=== PATIENT | female | born 1975 | race Caucasian/White ===

== ENCOUNTER 2018-06-26 08:00 | Outpatient (CLI) | payer BC ==
[2018-07-18 07:11] VITALS: BMI 34.4
== END 2018-06-26 09:00 | disposition home or self-care (01) ==
LOC: D.MAMMO 08:00
DX: Z12.31 Encounter for screening mammogram for malignant neoplasm of breast (principal)

== ENCOUNTER → 2018-06-26 16:54 | Outpatient (CLI) | payer BC ==
[~2018-06-26 16:54] MED LIST: FLUTICASONE PRO16 GM; LISINOPRIL10 MG PO; OMEPRAZOLE CAP 20M; [UNRECOGNIZED DRUG - OTHER]
[2018-07-18 07:11] VITALS: BMI 34.4
== END | disposition home or self-care (01) ==
LOC: D.LABREF 16:54
DX: R31.9 Hematuria, unspecified (principal)

== ENCOUNTER → 2018-07-04 08:37 | Outpatient (CLI) | payer BC ==
[2018-07-18 07:11] VITALS: BMI 34.4
== END | disposition home or self-care (01) ==
LOC: D.CT 08:30
DX: R31.21 Asymptomatic microscopic hematuria (principal)

== ENCOUNTER 2018-07-18 06:00 | Day surgery (SDC) | payer BC ==
[~2018-07-18] VITALS: Ht 162.6 cm; Wt 90.7 kg
--- NOTE | ~2018-07-18 | OP ---
PATIENT NAME: DONA TIJERINA MEDICAL RECORD: [id number] :77 LOCATION:[facility] ADMISSION DATE: SURGEON: GEETA BARNES MD DATE OF OPERATION: 07/18/2018 SURGEON: Geeta Barnes MD APPLIANCE PAINTER AND REFINISHER: JADA by Erich Pat CRNA. DIAGNOSES: Microscopic hematuria, interstitial cystitis, female stress urinary incontinence, cystocele Landis-Walker grade II. PROCEDURES: Examination under anesthesia, cystoscopy, intravesical Rimso instillation. FINDINGS: On EUA, she has a cystocele Landis-Walker grade II. She has single ureteral orifices bilaterally on cystoscopy. There are patches of bladder inflammation seen in the bladder. No bladder tumors were seen. BLOOD LOSS: None. CLINICAL HISTORY: This is a 43-year-old female, who is a smoker, half pack per day for 31 years. She has microscopic hematuria and symptoms of recurrent urinary tract infections. She has also symptoms of dysuria, suprapubic pain with radiation to the flanks, urinary frequency every 1-1/2 to 2 hours and urgency without incontinence. She also leaks urine with coughing, sneezing, and lifting patients. She works as a nurse. For the hematuria, she would require cystoscopy. She has already had a CT scan of the abdomen and pelvis, which was normal. Urine cytology and culture showed no growth. Cytology was normal. She comes today to have a cystoscopy performed and if we see bladder inflammation, we will give intravesical Rimso. SHE IS ALLERGIC TO BENADRYL, OXYBUTYNIN, TAPE, VARICELLA VIRUS VACCINE. She was given Ancef operations business partner to the OR. DESCRIPTION OF PROCEDURE: The patient was given IV sedation. She was placed into dorsal lithotomy position and prepped and draped. I could see on examination that she has a cystocele, which comes quite a bit down when suprapubic pressure is applied. A 17-Sierra Leonean cystoscope was placed into the urethra. She actually reacted when the scope was passed. Going into the bladder, the findings are as outlined above. No tumors were seen. The bladder was then emptied through the cystoscope sheath. Through a red rubber catheter, we inserted 50 mL of Rimso-50 solution into the bladder. The patient will hold the solution in for 15 minutes and then void it out. She will be seen in the office next week to have treatment #2 given to her. TRANSINT:[id number] Voice Confirmation ID: [id number] DOCUMENT ID: [id number] GEETA BARNES MD at 0941 CC: [id number] DICTATION DATE: 07/18/18919 INTERIOR DECORATOR: 07/18/18932 [id number] [place] [id number]
[2018-07-18 06:17] LABS: HEMATOCRIT 42.6 % (36.0-48.0); HEMOGLOBIN 14.7 g/dL (12-16); MCH 32.5 pg (26.0-34.0); MCHC 34.5 g/dL (31.0-37.0); MEAN PLATELET VOLUME 11.4 fL (7.4-10.4); RBC 4.53 10x6/uL (4.00-5.40); RDW 12.9 % (11.5-14.5); WBC 11.9 10x3/uL (4.8-10.8)
[2018-07-18] MEDS ORDERED: OMEPRAZOLE CAP 20M (06:56)
[2018-07-18] MEDS ORDERED: FLUTICASONE PRO16 GM (06:57)
[2018-07-18] MEDS ORDERED: [UNRECOGNIZED DRUG - OTHER] (06:57)
[2018-07-18] MEDS ORDERED: LISINOPRIL10 MG PO (06:57)
[2018-07-18 07:11] VITALS: BP 107/67; Ht 162.6 cm; Wt 90.7 kg
== END 2018-07-18 09:50 | disposition home or self-care (01) ==
LOC: D.OPS 06:00 → D.PAN 08:10 → D.OPS 08:15
PROVIDERS: Anesthesiology
DX: N30.11 Interstitial cystitis (chronic) with hematuria (principal); R31.29 Other microscopic hematuria; N39.3 Stress incontinence (female) (male); N81.10 Cystocele, unspecified; Z87.440 Personal history of urinary (tract) infections; Z01.812 Encounter for preprocedural laboratory examination; F17.210 Nicotine dependence, cigarettes, uncomplicated

== ENCOUNTER → 2018-07-23 12:04 | Outpatient (CLI) | payer BC ==
[2018-07-18 07:11] VITALS: BMI 34.4
[~2018-07-23 12:04] MED LIST changes: +CLARITIN 10 MG10 MG PO; +ZOFRAN8 MG PO
== END | disposition home or self-care (01) ==
LOC: D.LABREF 12:04
DX: D72.829 Elevated white blood cell count, unspecified (principal); R31.9 Hematuria, unspecified

== ENCOUNTER 2018-07-25 18:30 | Emergency (ER) | payer BC ==
[~2018-07-25] VITALS: Ht 162.6 cm; Wt 90.9 kg
[~2018-07-25 18:30] MED LIST changes: -CLARITIN 10 MG10 MG PO; -ZOFRAN8 MG PO
[2018-07-25 18:34] VITALS: Ht 162.6 cm; Wt 90.9 kg
[2018-07-25] MEDS ORDERED: CLARITIN 10 MG10 MG PO (18:37)
[2018-07-25 19:30] LABS: APPEARANCE CLEAR (CLEAR); BILIRUBIN NEGATIVE (NEGATIVE); COLOR YELLOW (YELLOW); GLUCOSE NEGATIVE (NEGATIVE); KETONE NEGATIVE (NEGATIVE); NITRITE NEGATIVE (NEGATIVE); PROTEIN NEGATIVE (NEGATIVE); RED CELLS - URINE 0-5 /hpf (0-5); UROBILINOGEN NORMAL (NORMAL); WHITE CELLS - URINE NSEEN /hpf (0-5)
[2018-07-25 19:31] LABS: BASOPHILS 0.4 % (0-2); EOSINOPHILS 7.3 % (0-7); HEMATOCRIT 42.2 % (36.0-48.0); HEMOGLOBIN 14.6 g/dL (12-16); IMMATURE GRANULOCYTES 0.2 % (0-5); LYMPHOCYTES 20.1 % (15-50); MCH 32.4 pg (26.0-34.0); MCHC 34.6 g/dL (31.0-37.0); MCV 93.8 fL (80.0-100.0); MEAN PLATELET VOLUME 11.6 fL (7.4-10.4); MONOCYTES 6.3 % (2-11); NEUTROPHILS 65.7 % (40-80); PLATELET COUNT 225 10x3/uL (130-400); WBC 8.3 10x3/uL (4.8-10.8)
[2018-07-25 19:50] LABS: ALBUMIN 3.8 g/dL (3.4-5.0); ALKALINE PHOSPHATASE 65 U/L (46-116); ALT (SGPT) 25 U/L (10-68); AMYLASE - SERUM 60 U/L (25-115); BILIRUBIN - TOTAL 0.28 mg/dL (0.2-1.3); CALC OSMOLALITY 276 mosm/kg (275-300); CALCIUM 9.3 mg/dL (8.5-10.1); CARBON DIOXIDE 28.2 mmol/L (21.0-32.0); CHLORIDE - SERUM 102 mmol/L (98-107); CREATININE - SERUM 0.6 mg/dL (0.6-1.3); GLUCOSE 95 mg/dL (74-106); LIPASE 158 U/L (73-393); POTASSIUM - SERUM 4.6 mmol/L (3.5-5.1); PROTEIN - SERUM 7.8 g/dL (6.4-8.2); SODIUM 138 mmol/L (136-145); UREA NITROGEN 16 mg/dL (7-18); eGFR NON AFRICAN AMERICAN > 90 mL/min (90-120)
[2018-07-25 20:28] LABS: HCG URINE NEGATIVE (NEGATIVE)
[2018-07-25] MEDS ORDERED: ZOFRAN8 MG PO (22:22)
[2018-07-25 23:11] VITALS: BP 132/78
== END 2018-07-25 23:12 | disposition home or self-care (01) ==
LOC: D.ER 18:30
PROVIDERS: Family Medicine
DX: R10.31 Right lower quadrant pain (principal); Z87.448 Personal history of other diseases of urinary system; R30.0 Dysuria; R35.0 Frequency of micturition; R11.0 Nausea; I10 Essential (primary) hypertension; K21.9 Gastro-esophageal reflux disease without esophagitis; F17.200 Nicotine dependence, unspecified, uncomplicated

== ENCOUNTER → 2018-08-18 17:28 | Outpatient (CLI) | payer BC ==
[2018-07-25 18:34] VITALS: BMI 34.4
[~2018-08-18 17:28] MED LIST changes: +CLARITIN 10 MG10 MG PO; +ZOFRAN8 MG PO
[2018-08-18 17:38] LABS: APPEARANCE CLEAR (CLEAR); BILIRUBIN NEGATIVE (NEGATIVE); COLOR YELLOW (YELLOW); GLUCOSE NEGATIVE (NEGATIVE); KETONE NEGATIVE (NEGATIVE); NITRITE NEGATIVE (NEGATIVE); PROTEIN NEGATIVE (NEGATIVE); UROBILINOGEN NORMAL (NORMAL)
[2018-08-18 17:40] LABS: BACTERIA FEW /hpf (NONE SEEN); RED CELLS - URINE 0-5 /hpf (0-5); WHITE CELLS - URINE 0-5 /hpf (0-5)
== END | disposition home or self-care (01) ==
LOC: D.LABREF 17:28
PROVIDERS: Urology
DX: N39.0 Urinary tract infection, site not specified (principal)

== ENCOUNTER → 2018-10-17 09:12 | Day surgery (SDC) | payer BC ==
[~2018-10-17] VITALS: Ht 162.6 cm; Wt 86.2 kg
[~2018-10-17 09:12] MED LIST changes: -FLUTICASONE PRO16 GM; +FLUTICASONE PRO16 GM NASAL; -LISINOPRIL10 MG PO; +LISINOPRIL5 MG PO; +LORATADINE D; -OMEPRAZOLE CAP 20M; +OMEPRAZOLE20 M1 PO
[2018-10-17 09:35] LABS: HEMATOCRIT 42.8 % (36.0-48.0); HEMOGLOBIN 14.7 g/dL (12-16); MCH 32.3 pg (26.0-34.0); MCHC 34.3 g/dL (31.0-37.0); MCV 94.1 fL (80.0-100.0); MEAN PLATELET VOLUME 10.7 fL (7.4-10.4); RBC 4.55 10x6/uL (4.00-5.40); RDW 13.2 % (11.5-14.5); WBC 9.9 10x3/uL (4.8-10.8)
[2018-10-17 10:35] VITALS: BP 96/74; Ht 162.6 cm; Wt 86.2 kg
--- NOTE | 2018-10-17 16:02 | NUR ---
PRE OP BP 96/74 THE PATIENT REPORTS HER BP RUNS LOW
--- NOTE | 2018-10-17 19:06 | OP ---
PATIENT NAME: DONA TIJERINA MEDICAL RECORD: [id number] :77 LOCATION:D[facility] ADMISSION DATE: SURGEON: ELIOT BARNES MD DATE OF OPERATION: 10/17/2018 SURGEON: Eliot Barnes MD ANESTHESIA: General anesthesia by Eliot Salgado MD DIAGNOSES: 1. Female stress urinary incontinence. 2. Midline cystocele, Gallaway-Walker grade II. PROCEDURES: 1. Cystoscopy. 2. Pubovaginal sling with mesh, [employer] Obtryx. 3. Cystocele repair with mesh, [employer] Uphold II. FINDINGS: On cystoscopy, single ureteral orifices bilaterally. No bladder tumors were seen. No bladder injury. ESTIMATED BLOOD LOSS: 30 mL. 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 She has a long-standing history of female stress urinary incontinence and a known Gallaway-Walker grade II cystocele. She still has her uterus, but she has had tubal ligation. She works as a nurse here at [employer], but she is leaving the job to take a job in [place], [place]. Since today will be her last day with the hospital insurance, she would like to have the stress incontinence and the cystocele repaired. I discussed issues with mesh graft versus bovine dermis. She has decided to go with the mesh graft. She is aware of the risk of infection, pain, dyspareunia, graft erosion, graft extrusion. However, she wants to have the permanence potentially offered by the mesh. SHE IS ALLERGIC TO BENADRYL, OXYBUTYNIN, VARICELLA VACCINE, AND TAPE. She was given Ancef on-call to the OR. PROCEDURE IN DETAIL: The patient was given induction of general anesthesia. She was then placed in the dorsal lithotomy position and prepped and draped. A weighted speculum was used to hold down the posterior vaginal wall. Gleason catheter was placed into the bladder and put to bag drainage. A #2 nylon sutures were used to retract the labia majora laterally. These were anchored to the medial thighs. The anterior vaginal wall was then infiltrated with Pitressin solution. Twenty units of Pitressin was dissolved in 100 mL of injectable normal saline. This was injected into the anterior vaginal wall for hydrodissection. A transverse incision was made at the level of the bladder neck. This dissection was done with Metzenbaum scissors. We went through the pubocervical fascia. Laterally, we broke through the fascia pelvis arcus tendineus. We also exposed the obturator membranes laterally. Going posteriorly, we broke into the presacral space and cleared the sacrospinous ligament. The ischial spines were clearly palpable. The landmark where the placement of the Uphold graft is through the sacrospinous ligament, 1 cm medial to the ischial spine. The reason for going medial to the ischial spine is to avoid hitting the internal pudendal artery and nerve. Once these sutures of the posterior arms of the graft were placed on each sacrospinous ligament, then, by putting traction on the suture arms, we found that the anchorage was strong. OPERATIVE REPORT [id number] DONA TIJERINA The suture arms were then pulled through gently to bring the graft into apposition to the undersurface of the bladder. The posterior apex of the graft has a notch in it. This was sutured to the cervical neck with 3-0 Monocryl simple interrupted suture. On the other end, near the bladder neck in the midline, we sutured the graft to the bladder neck region and the bladder muscle with 3-0 Monocryl in a simple interrupted suture. These 2 tacking sutures prevent the graft from rolling into a little string but instead keep it flat under the bladder surface. We then landmarked for pubovaginal sling. This is just inferior to the adductor longus muscle as it inserts onto the descending pubic ramus. A landmark was marked here on each side using a marking pen. A stab incision was then made with a #15 blade. The helical trocars were used. The trocar was passed deep to the descending pubic ramus and exited out through the anterior apex of the obturator membrane and then into the vaginal dissection space. Here, it was hooked to the end of the Obtryx graft arm. Once we pulled the helical trocars back out, this resulted in transobturator passage of the graft arms of the pubovaginal sling. There is a tab on the midpoint of the sling, which was placed under the mid urethra. Now that our grafts were roughly in position, we performed cystoscopy. The Gleason catheter was removed. A 17-Bengali cystoscope with 30-degree lens was used for visualization. No bladder injury was seen. The bladder was filled to capacity through the cystoscope. With suprapubic pressure, we could see a little bit of urethral leakage. A little bit of gentle increase in tension on the pubovaginal sling resulted in no further leakage even when quite significant suprapubic pressure was applied. At this point, we had enough tension to prevent stress incontinence. All the clear plastic sheath material from the graft arms was removed. This was done by cutting a stay suture in each graft arm. The plastic sheath material was then removed entirely. In the inguinal region, the graft arms were cut where they exited the stab incision in the skin. The skin was then closed using 3-0 and 4-0 Vicryl simple interrupted sutures. The excess length of the graft arms for the sacrospinous ligament suspension was cut off where it could be seen. The vaginal dissection space was then irrigated out using normal saline. Transverse incision on the vagina was closed using running 4-0 Monocryl. We did put Gleason catheter back in temporarily just to drain the bladder. The Gleason catheter was then removed again. Vaginal packing consisting of Kerlix infiltrated with estrogen cream was placed into the vagina. It will stay in for a couple of hours and then be removed prior to the patient going home. I will see the patient in follow up in 2 weeks' time. TRANSINT:[id number] Voice Confirmation ID: [id number] DOCUMENT ID: [id number] ELIOT BARNES MD at 1906 CC: [id number] DICTATION DATE: 10/17/18 1546 STAVE CUTTING SUPERVISOR: 10/17/18 1801 [facility] [address] [place] [address]
--- NOTE | 2018-10-17 19:50 | NUR ---
PATIENT UNABLE TO VOID. 18 BERMUDIAN FAITH CATH INSERTED TO DRAIN BAG. DRAINING CLEAR YELLOW URINE. PATIENT DRESSING IN PERSONAL CLOTHING
--- NOTE | 2018-10-17 20:15 | NUR ---
DISCHARGED HOME VIA WHEELCHAIR TO PRIVATE VEHICLE WITH SPOUSE
== END | disposition home or self-care (01) ==
LOC: D.OPS 09:12 → D.PAN 11:40 → D.OPS 11:45 → D.PAN 13:40 → D.OPS 14:00 → D.PAN 14:00
PROVIDERS: Anesthesiology
DX: N39.3 Stress incontinence (female) (male) (principal); N81.11 Cystocele, midline; Z88.7 Allergy status to serum and vaccine; Z88.8 Allergy status to other drugs, medicaments and biological substances; Z01.812 Encounter for preprocedural laboratory examination

== ENCOUNTER → 2018-11-01 18:26 | Outpatient (CLI) | payer BC ==
[2018-10-17 10:35] VITALS: BMI 32.7
== END | disposition home or self-care (01) ==
LOC: D.LABREF 18:26
DX: R31.9 Hematuria, unspecified (principal); D72.829 Elevated white blood cell count, unspecified

== ENCOUNTER → 2019-07-15 11:14 | Outpatient (CLI) | payer BC ==
[2018-10-17 10:35] VITALS: BMI 32.7
[~2019-07-15 11:14] MED LIST changes: +FISH OIL 1,0001 CA1 PO; +IBUPROFEN800 MG PO; +NEURONTIN 300300 MG PO; +PAROXETINE HCL10 MG PO; +PERCOCET 5-3251 TAB PO
[2019-07-16 07:14] LABS: FOLLICLE STIMULATING HORMONE 7.3 mIU/mL (()); LUTEINIZING HORMONE 5.5 mIU/mL (())
[2019-07-18 21:06] LABS: ESTROGENS - TOTAL 131 pg/mL (())
== END | disposition home or self-care (01) ==
LOC: D.LAB 11:14
PROVIDERS: ATTEND Obstetrics & Gynecology
DX: R68.89 Other general symptoms and signs (principal); R19.00 Intra-abdominal and pelvic swelling, mass and lump, unspecified site; R53.81 Other malaise; R53.83 Other fatigue

== ENCOUNTER 2019-08-04 05:57 | Day surgery (SDC) | payer BC, OTHER ==
[2019-08-01 13:33] LABS: CALC OSMOLALITY 281 mosm/kg (275-300); CALCIUM 8.6 mg/dL (8.5-10.1); CHLORIDE - SERUM 106 mmol/L (98-107); CREATININE - SERUM 0.8 mg/dL (0.6-1.3); GLUCOSE 89 mg/dL (74-106); POTASSIUM - SERUM 4.2 mmol/L (3.5-5.1); SODIUM 141 mmol/L (136-145); UREA NITROGEN 17 mg/dL (7-18); eGFR NON AFRICAN AMERICAN 83 mL/min (90-120)
[2019-08-01 14:09] LABS: HEMATOCRIT 43.3 % (36.0-48.0); LYMPHOCYTES 35.9 % (15-50); MCH 32.6 pg (26.0-34.0); MCHC 34.6 g/dL (31.0-37.0); MCV 94.1 fL (80.0-100.0); MEAN PLATELET VOLUME 10.7 fL (7.4-10.4); NEUTROPHILS 53.4 % (40-80); PLATELET COUNT 232 10x3/uL (130-400); RDW 12.7 % (11.5-14.5); WBC 9.5 10x3/uL (4.8-10.8)
[~2019-08-04] VITALS: Ht 162.6 cm; Wt 81.8 kg
[~2019-08-04 05:57] MED LIST changes: -IBUPROFEN800 MG PO; -NEURONTIN 300300 MG PO; -PERCOCET 5-3251 TAB PO
[2019-08-04 06:24] VITALS: BP 132/80; BMI 33.0
[2019-08-04 06:32] LABS: HCG URINE NEGATIVE (NEGATIVE)
--- NOTE | 2019-08-04 14:50 | NUR ---
OK TO D/C PER ANESTHESIA WITH PATIENT AT 93% ON 4L NC.
[2019-08-04 15:13] VITALS: BP 120/71
[2019-08-04 15:56] VITALS: BP 120/71; Ht 162.6 cm; Wt 81.8 kg
--- NOTE | 2019-08-04 19:52 | NUR ---
PT NET FISHER LIGHT, C/O PAIN, ADM PERCOCET PO PER MD ORDERS, SEE EMAR, IV IN LEFT HAND INTACT WITH NO REDNESS OR EDEMA, FLUIDS NOTED NOT TO BE INFUSING AT THIS TIME, PT REQUESTS IT TO BE SALINE LOCKED, IV CONVERTED TO SALINE LOCK, FLUSHED WITH 10MLS OF NS WITH NO DIFFICULTY, PT REPORTS VOIDING SMALL AMOUNT BUT STATES "I MISSED THE HAT", PT INST TO MAKE SURE SHE USES THE Tello HAT, AND ENC PT TO DRINK PLENTY OF FLUIDS, PT VERBALIZES UNDERSTANDING, PT REQUESTED AND SERVED APPLE JUICE AND 2 BOTTLES OF WATER, PT DENIES FURTHER NEEDS, SCD'S ON AND WORKING PROPERLY, INFORMED PT THAT FLETCHER BURT RN WILL BE IN SHORTLY TO DO ASSESSMENT, PT'S MOM AT BEDSIDE
--- NOTE | 2019-08-04 19:52 | NUR ---
PT RECEIVED PERCOCET 10 MG PO FOR PAIN.
--- NOTE | 2019-08-04 20:45 | NUR ---
PT GLOBAL COMPENSATION DIRECTOR LIGHT, UMB INC NOTED TO BE DRAINING SLIGHTLY, INC CLEANED UP WITH WET WARM WASH CLOTH, PRESSURE DRESSING PLACED, WILL CONTINUE TO MONITOR
[2019-08-04 21:00] VITALS: BP 105/82
--- NOTE | 2019-08-04 21:00 | NUR ---
PT IS DOING WELL. SHE IS WALKING THE HALLS WITH HER FAMILY. 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 HER INCISION SITES ON HER ABD ARE WNL. NO DRAINAGE NOTED. HEART SOUNDS NORMAL, LUNGS CLEAR, BOWEL SOUNDS NOT HEARD. PT HAS SCD'S ON WHILE IN BED. INSTRUCTED ON USE OF INCENTIVE SPIROMETER. SHE DOES THIS PROPERLY AND WITHIN THE LIMITS. SKIN IS WARM AND DRY.
--- NOTE | 2019-08-04 21:00 | NUR ---
PT VOIDED 100 CC CLEAR, YELLOW URINE. NO PAIN NOTED WITH URINATION.
--- NOTE | 2019-08-04 21:29 | NUR ---
TORADOL 30 MG IV GIVEN.
--- NOTE | 2019-08-04 21:48 | NUR ---
PT AMB IN [place], GAIT STEADY, PT'S MOM AT SIDE
--- NOTE | 2019-08-04 21:56 | NUR ---
PT BACK TO ROOM, BEDDING PROVIDED TO PT'S MOM, PT TO BR TO SEE IF SHE CAN VOID, SINK WATER TURNED ON PER PT'S REQUESTS, PT INST TO USE CALL LIGHT FOR ANY ASSISTANCE
--- NOTE | 2019-08-04 22:00 | NUR ---
FLETCHER BURT RN TO ROOM
--- NOTE | 2019-08-04 22:14 | NUR ---
PT SITTING UP IN BED EATING CHEETOS, RATES PAIN 11/24, PT REPORTS VOIDING 200MLS AND THAT SHE INFORMED FLETCHER BURT RN, SCD'S BACK ON AND WORKING PROPERLY, DENIES NEEDS AT THIS TIME
--- NOTE | 2019-08-04 22:16 | NUR ---
PT HAS ABEEN UP AMBULATING IN THE HALLS. PT VOIDED 225 CC CLEAR YELLOW URINE.
--- NOTE | 2019-08-04 23:02 | NUR ---
PT WAS UP TO BR TO VOID 325 ML. NO PAIN WITH VOIDING. PT RECEIVED 1 MG OF DILAUDID IV FOR PAIN AT THE INCISION SITE.
[2019-08-05 00:21] VITALS: BP 104/61
--- NOTE | 2019-08-05 00:40 | NUR ---
PT HYDROELECTRIC PLANT ELECTRICIAN LIGHT, ASSISTED PT'S MOM WITH RECLINER, INFORMED PT THAT FLETCHER BURT RN WILL BE IN SHORTLY WITH PAIN MED, PT VERBALIZES UNDERSTANDING, DENIES FURTHER NEEDS
--- NOTE | 2019-08-05 00:50 | NUR ---
PT RECEIVED PERCOCET 10 MG PO FOR PAIN. PAIN AT INCISION SITE.
--- NOTE | 2019-08-05 01:05 | NUR ---
PT VOIDED 300 ML AT THIS TIME. NO PAIN NOTED WITH VOIDING.
--- NOTE | 2019-08-05 02:30 | NUR ---
PT UP TO VOID 350 CC. NO C/O GETS OUT OF BED WITH HELP OF HER MOTHER.
--- NOTE | 2019-08-05 03:45 | NUR ---
PT RECEIVED 30 MG OF TORDOL IV. SHE CONT TO DO WELL. NO C/O NO NEEDS OR WANTS AT THIS TIME. A GLASS OF WATER WAS SERVED.
[2019-08-05 04:30] VITALS: BP 115/67
--- NOTE | 2019-08-05 04:30 | NUR ---
PT RESTING WITH EYES CLOSED, AROUSES TO SOFT VERBAL STIMULATION, VS OBTAINED, PT RATES PAIN 03/26, INFORMED PT THAT I WILL ADM PAIN MED WHEN DUE, PT VERBALIZES UNDERSTANDING, SCD'S CONTINUE ON AND WORKING PROPERLY, DENIES FURTHER NEEDS, PT'S MOM AT BEDSIDE
--- NOTE | 2019-08-05 04:50 | NUR ---
ADM PERCOCET PER MD ORDERS, SEE EMAR, WITH FRESH BOTTLE OF H20, DENIES FURTHER NEEDS
--- NOTE | 2019-08-05 05:30 | NUR ---
DR ROMANO TO ROOM
--- NOTE | 2019-08-05 05:34 | NUR ---
DR ROMANO OUT OF ROOM
--- NOTE | 2019-08-05 06:44 | NUR ---
PT IS RESTING WITH HER EYES CLOSED. HER MOTHER IS AT BEDSIDE RESTING WITH HER EYES CLOSED. NEITHER OPENED THEIR EYES WHEN RN ENTERED THE ROOM. PT HAS BEEN AWAKE MOST OF THE NIGHT.
--- NOTE | 2019-08-05 06:50 | NUR ---
PT ASLEEP- BEDSIDE REPORT NOT DONE.
[2019-08-05 07:22] VITALS: BP 119/63
--- NOTE | 2019-08-05 07:28 | NUR ---
ASSESSMENT DONE. PT CO INDIGESTION- STATES SHE TAKES PRILOSEC AT HOME. STATES IS VOIDING WITHOUT PROBLEMS. HYPOACTIVE BOWEL SOUNDS NOTED. LAP INCISIONS X3 NOTED- DRY DRAINAGE NOTED ON EACH. SMALL DRESSING AT UMBILICUS. SCD'S ON. STATES HAS NOT PASSED FLATUS YET.
--- NOTE | 2019-08-05 07:40 | NUR ---
PHONED DR ROMANO AND INFORMED OF PT CO INDIGESTION AND REQUESTING PEPCID AND TUMS- NEW ORDERS RECEIVED.
--- NOTE | 2019-08-05 08:18 | NUR ---
STATES SHE IS READY TO GET IN SHOWER.
--- NOTE | 2019-08-05 08:30 | NUR ---
SALINE LOCK REMOVED WITH CATH TIP INTACT. PRESSURE HELD AND BANDAIDE APPLIED.
--- NOTE | 2019-08-05 09:08 | NUR ---
SHOWER DONE- PT AMBULATING IN HALLWAYS. STATES FEELS MUCH BETTER AFTER SHOWER.
--- NOTE | 2019-08-05 09:12 | OP ---
PATIENT NAME: DONA TIJERINA MEDICAL RECORD: [id number] :77 LOCATION:[facility]1223 ADMISSION DATE: SURGEON: JIM ROMANO MD DATE OF OPERATION: 08/04/2019 PREOPERATIVE DIAGNOSES: 1. Pelvic pain. 2. Dysmenorrhea. 3. Dyspareunia. POSTOPERATIVE DIAGNOSES: 1. Pelvic pain. 2. Dysmenorrhea. 3. Dyspareunia. 4. Pelvic adhesions. PROCEDURES PERFORMED: 1. Diagnostic laparoscopy. 2. Lysis of adhesions. 3. Total laparoscopic hysterectomy. 4. Bilateral salpingectomy. 5. Right oophorectomy. SURGEON: Jim Romano MD RETAIL BAKERY MANAGER: Andreas. BOAT OUTFITTING SUPERVISOR: Clarke Davies. ANESTHESIOLOGIST: Dr. Horvath. ANESTHETIC: General. FINDINGS: Omentum adhesed to the midline below the level of the umbilicus and there are adhesions from the midline of the fundus of the uterus over to the left adnexa. The uterus is enlarged and boggy. Both ovaries are unremarkable. Both tubes were interrupted, otherwise unremarkable. The bladder is adhesed to the uterus. SPECIMENS REMOVED: Uterus with cervix and bilateral tubes and right ovary. SPECIMEN DISPOSITION: All specimens to pathology. ESTIMATED BLOOD LOSS: 75 cc. FLUIDS: 2500 cc of lactated Ringer's. URINE OUTPUT: 140 cc of clear urine. COMPLICATIONS: None. DRAINS: Gleason to gravity. INDICATIONS: The patient is a 44-year-old female, who reports dysmenorrhea and pelvic pain. The patient reports dyspareunia as well. The patient's pain is OPERATIVE REPORT [id number] DONA TIJERINA isolated to the right side. The patient requests removal of right ovary at the time of hysterectomy. DESCRIPTION OF PROCEDURE: After informed consent was assured, the patient was taken to the operating room where anesthetic was obtained and she was placed in [facility]. The patient is now prepped and draped in the usual sterile fashion and the uterine manipulator placed. Attention was now directed to the abdomen where an incision was made to accommodate a 5-mm trocar. This trocar was inserted and pneumoperitoneum was developed. Accessory ports were placed in the right and left lower quadrants. Through the right lower quadrant port, a grasper was inserted. The left tube was elevated and the connection of the tube to the adnexa was serially compress, coagulated, and . The dissection was carried out underneath the tube across the round ligament and the anterior leaf of the broad ligament was opened. The posterior leaf was opened and the vascular bundle of the right side identified, compressed, coagulated, and . Attention was now directed to the right side. The right ovary was elevated and the infundibulopelvic ligament compressed, coagulated, and . The dissection was carried out underneath the right ovary across the round ligaments and the anterior leaf of the broad ligament was opened. The posterior leaf was also dissected free of the vascular bundle of the right side that is compressed, coagulated, and at the level of the internal os. The bladder flap was now developed. Through dissection with the Thunderbeat as well as EndoShears, the bladder flap was developed. A retrograde flip filling to the bladder with sterile milk was also performed to delineate the margins of dissection. Once it was assured, the bladder was well free of the vaginal cup of the VCare manipulator. Dissection now begins. The dissection begins at the 12 o'clock position and concludes at the 7-8 o'clock position from the right. From the left side, the dissection was picked up at the 12 o'clock position and concludes at the 8 going counterclockwise. Uterus is pulled into the vaginal vault along with the ovary. The cuff was now closed with interrupted Vicryl stitches. After closure of the cuff, the pelvis was irrigated and irrigant removed. Sponge, lap, needle counts were correct times 2 at the close of this procedure. The patient was awakened and went to the recovery room in stable condition. TRANSINT:[id number] Voice Confirmation ID: [id number] DOCUMENT ID: [id number] JIM ROMANO MD at 0912 CC: [id number] DICTATION DATE: 08/04/19 1346 FAST FOOD CREW MEMBER: 08/04/19 1446 [facility] [address] [id number]
--- NOTE | 2019-08-05 09:14 | NUR ---
DR ROMANO CALLS UNIT AND STATES THAT HE PUT IN DISCHARGE ORDERS.
--- NOTE | 2019-08-05 09:39 | NUR ---
SITTING UP IN BEDSIDE CHAIR. PAIN MEDICATION GIVEN. DULCOLAX SUPP GIVEN. PT STATES SHE CAN INSERT HERSELF.
--- NOTE | 2019-08-05 09:40 | NUR ---
PT RINGS CALL LIGHT AND STATES SHE IS READY TO GO HOME AND THAT HER RIDE IS HERE. DISCHARGE INST VERBAL AND WRITTEN GIVEN. SEE DISCHARGE INST LIST. PFW POST OP INST GIVEN. SCRIPTS X3 GIVEN WITH PT MED REC AND DRUG DATA INFO SHEETS. PT HEALTH SUMMARY GIVEN. PT DENIES QUESTIONS.
[2019-08-05] MEDS ORDERED: PERCOCET 5-3251 TAB PO (09:48)
[2019-08-05] MEDS ORDERED: IBUPROFEN800 MG PO (09:49)
[2019-08-05] MEDS ORDERED: NEURONTIN 300300 MG PO (09:50)
--- NOTE | 2019-08-05 10:05 | NUR ---
DISCHARGED HOME- TO AUTO VIA W/C WITHOUT INCIDENT.
== END 2019-08-05 10:05 | disposition home or self-care (01) ==
LOC: D.OPS 05:57 → D.PAN 08:15 → D.OPS 08:30 → D.MS 14:42 → D.WS 18:43 → D.OPS 08-05 10:05
PROVIDERS: ATTEND Obstetrics & Gynecology
DX: R10.2 Pelvic and perineal pain (principal); N94.6 Dysmenorrhea, unspecified; N94.10 Unspecified dyspareunia; N73.6 Female pelvic peritoneal adhesions (postinfective)